=== PATIENT | male | born 1995 | race African-American/Black ===

== ENCOUNTER 2025-01-15 02:25 | Emergency (ER) | payer MEDICAID ==
[~2025-01-15] VITALS: Ht 175.3 cm; Wt 82.0 kg
[~2025-01-15 02:25] MED LIST: ERYT60GE9 TP; TOPUD PO
[2025-01-15 02:28] VITALS: O2SAT 100
[2025-01-15 02:35] VITALS: BP 158/92; PULSE 98; RESP 18; TEMP 36.8; O2SAT 100
[2025-01-15] MEDS ORDERED: KETOROLAC 15MG/ML VIAL IM ONE (05:30)
[2025-01-15] MEDS ORDERED: ACETAMINOPHEN 325MG TABLET PO ONE (05:30)
== END 2025-01-15 05:19 | disposition left against medical advice (07) ==
LOC: ER 02:25
DX: R51.9 Headache, unspecified (principal); Z53.21 Procedure and treatment not carried out due to patient leaving prior to being seen by health care provider

== ENCOUNTER 2025-02-19 15:28 | Emergency (ER) | payer MEDICAID ==
[~2025-02-19] VITALS: Ht 172.7 cm; Wt 82.0 kg
[2025-02-19 15:35] VITALS: O2SAT 99
[2025-02-19 15:52] VITALS: BP 139/85; PULSE 110; RESP 16; TEMP 36.7; O2SAT 99
== END 2025-02-19 16:13 | disposition left against medical advice (07) ==
LOC: ER 15:28
DX: R10.84 Generalized abdominal pain (principal); Z53.21 Procedure and treatment not carried out due to patient leaving prior to being seen by health care provider